=== PATIENT | female | born 1980 ===

== ENCOUNTER 2020-09-13 18:00 | Outpatient (CLI) | payer OTHER | END 2020-09-13 18:01 | disposition home or self-care (01) | LOC: SLEEPLAB 18:00 | PROVIDERS: ATTEND Family Medicine | DX: G47.10 Hypersomnia, unspecified (principal); G47.33 Obstructive sleep apnea (adult) (pediatric); R06.83 Snoring; G47.00 Insomnia, unspecified | CPT/HCPCS: 95806 ==